=== PATIENT | female | born 1965 | race Caucasian/White ===

== ENCOUNTER 2016-07-21 20:03 | Emergency (ER) | payer OTHER ==
[2016-07-21 22:26] VITALS: BP 132/65
== END 2016-07-21 22:26 | disposition home or self-care (01) ==
LOC: ED 20:03
DX: T23.251A Burn of second degree of right palm, initial encounter (principal); X08.8XXA Exposure to other specified smoke, fire and flames, initial encounter; Y93.E9 Activity, other interior property and clothing maintenance; Y99.8 Other external cause status; Y92.89 Other specified places as the place of occurrence of the external cause
CPT/HCPCS: 90715